=== PATIENT | female | born 1975 | race Caucasian/White ===

== ENCOUNTER 2022-10-18 13:35 | Emergency (ER) | payer BC ==
[~2022-10-18] VITALS: Ht 157.5 cm; Wt 75.7 kg
[2022-10-18 13:35] VITALS: BP_SYST 180
--- NOTE | 2022-10-18 14:50 | NUR ---
PT BIBA BLS FOR 2 EPISODES OF SYNCOPE WHILE AT WORK, NO K/O. PT IS AAOX4. ON R/A. NORMAL S1S2. PT HAS C/O NAUSEA. DISTAL PULSES NORMAL, SKIN INTACT, NO EDEMA. SIDERAILS X2.
--- NOTE | 2022-10-18 14:52 | NUR ---
# 18 gauge angiocath placed to LAC. Use of asceptic technique. Opsite placed over site. Blood return noted. Flushed with 10 cc of normal saline. No evidence of infiltration noted. Patient tolerated well.
[2022-10-18] MEDS ORDERED: METOCLOPRAMIDE HCL 10 MG/2 ML VIAL IVP ONE (15:00)
[2022-10-18] MEDS ORDERED: MECLIZINE HCL 25 MG TABLET (ANITVERT) PO ONE (15:00)
--- NOTE | 2022-10-18 15:00 | NUR ---
DR. MOSLEY AT BEDSIDE TO ASSESS PT.
--- NOTE | 2022-10-18 15:13 | NUR ---
SCHEDULED MEDS REGLAN IVP AND MECLIZINE PO GIVEN.
--- NOTE | 2022-10-18 15:19 | NUR ---
PT TAKEN OFF MONITOR AND TAKEN TO CT SCAN.
--- NOTE | 2022-10-18 15:19 | NUR ---
PT TAKEN OFF MONTIOR\\\
--- NOTE | 2022-10-18 15:19 | NUR ---
LABS OBTAINED. CXR COMPLETED.
[2022-10-18 15:33] LABS: BASOPHILS # (AUTO) 0.1 K/uL (0.0-0.2); BASOPHILS % (AUTO) 1.1 % (0.0-2.0); EOSINOPHILS # (AUTO) 0.1 K/uL (0.0-0.4); EOSINOPHILS % (AUTO) 1.1 % (0.0-4.0); HEMATOCRIT 42.2 % (36-48); HEMOGLOBIN 14.2 g/dL (12.0-16.0); LYMPHOCYTES # (AUTO) 2.4 K/uL (1.0-5.5); LYMPHOCYTES % (AUTO) 31.2 % (20.5-51.5); MEAN CORPUSCULAR HEMOGLOBIN 30 pg (27-31); MEAN CORPUSCULAR HGB CONC 34 % (32-36); MEAN CORPUSCULAR VOLUME 89 fL (79.0-98.0); MONOCYTES # (AUTO) 0.6 K/uL (0.0-1.0); MONOCYTES % (AUTO) 7.7 % (1.7-9.3); NEUTROPHILS # (AUTO) 4.5 K/uL (1.8-7.7); NEUTROPHILS % (AUTO) 58.9 % (40.0-70.0); PLATELET COUNT (AUTO) 263 K/uL (130-430); RED BLOOD CELL COUNT(AUTO) 4.76 MIL/uL (4.2-6.2); RED CELL DISTRIBUTION WIDTH 13.1 % (9.0-15.0); WHITE BLOOD COUNT (AUTO) 7.7 K/uL (4.8-10.8)
--- NOTE | 2022-10-18 15:40 | NUR ---
PT BACK FROM CT SCAN AND PLACED BACK ON MONITOR.
[2022-10-18 15:53] LABS: ALANINE AMINOTRANSFERASE 83 U/L (12-78); ALBUMIN 3.7 g/dL (3.4-4.8); ANION GAP 5 (5-15); ASPARTATE AMINOTRANSFERASE 38 U/L (10-37); CALCIUM 9.2 mg/dL (8.4-11.0); CHLORIDE 104 mmol/L (98-107); CREATININE 0.96 mg/dL (0.55-1.30); GLUCOSE 97 mg/dL (70-99); TOTAL BILIRUBIN 0.4 mg/dL (0.0-1.0); UREA NITROGEN, BLOOD 12 mg/dL (8-21)
[2022-10-18 15:55] LABS: GFR AFRICAN AMERICAN 79 mL/min (>90)
[2022-10-18] MEDS ORDERED: MECL-261 PO (16:26)
[2022-10-18 16:41] VITALS: BP_SYST 121
--- NOTE | 2022-10-18 16:43 | NUR ---
Patient given written and verbal discharge instructions and verbalizes understanding. ER MD discussed with patient the results and treatment provided. Patient in stable condition. ID arm band removed. IV catheter removed intact and dressing applied, no active bleeding. Rx of MECLIZINE given. Patient educated on pain management and to follow up with PMD. Pain Scale . Opportunity for questions provided and answered. Medication side effect fact sheet provided.
== END 2022-10-18 16:43 | disposition home or self-care (01) ==
LOC: SED 13:35
DX: R55 Syncope and collapse (principal); R42 Dizziness and giddiness; R11.10 Vomiting, unspecified; Z88.5 Allergy status to narcotic agent; Z88.6 Allergy status to analgesic agent; Z79.899 Other long term (current) drug therapy
CPT/HCPCS: 99285; 96374; 70450; 71045; 80053; 82962; 85025; 84484; 36415; 93005; 76376; J8597; J2765